=== PATIENT | female | born 2000 | race Two or more races ===

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

== ENCOUNTER 2025-02-06 09:30 | Outpatient (CLI) | payer OTHER | END 2025-02-06 09:31 | disposition home or self-care (01) | LOC: NUCLEAR 09:30 | PROVIDERS: ATTEND Internal Medicine | DX: M79.604 Pain in right leg (principal); R22.43 Localized swelling, mass and lump, lower limb, bilateral ==

== ENCOUNTER 2025-02-11 09:16 | Outpatient (CLI) | payer OTHER | END 2025-02-11 09:18 | disposition home or self-care (01) | LOC: SONOGRAMA 09:16 | PROVIDERS: ATTEND Internal Medicine | DX: R10.11 Right upper quadrant pain (principal); K76.0 Fatty (change of) liver, not elsewhere classified ==